=== PATIENT | male | born 1950 | race Caucasian/White ===

== ENCOUNTER 2020-08-29 18:06 | Emergency (ER) | payer MEDICARE, SELFPAY ==
--- NOTE | 2020-08-29 18:24 | ED.WOUNDLAC ---
HPI - Wound/Laceration General Chief Complaint: Wound/Laceration Stated Complaint: Cut left Hand Time Seen by Provider: 08/29/20 18:24 Source: patient and RN notes reviewed History of Present Illness HPI narrative: Patient is a 70-year-old male who presents the urgent care with complaints of a laceration to the left hand. Patient states that he was using a preparing box tender to strip the wire and the preparing box tender slipped, cutting his hand. Patient states that happened just within the last hour. States that he ran cold water over the injury, controlled the bleeding and cover the hand with a glove. Denies of any other acute complaints or injuries. No acute distress noted. Patient aware of the plan of care. Some parts of this dictation were generated by voice recognition software and may contain typographical and/or grammatical inaccuracies. Related Data Home Medications Medication Instructions Recorded Confirmed atorvastatin 80 mg PO DAILY 08/29/20 08/29/20 bupropion HCl 150 mg PO QAM 08/29/20 08/29/20 fluoxetine 40 mg PO DAILY 08/29/20 08/29/20 hydrocodone-acetaminophen 1 tablet PO Q6H PRN 08/29/20 08/29/20 lisinopril 20 mg PO DAILY 08/29/20 08/29/20 modafinil 200 mg PO QAM 08/29/20 08/29/20 sildenafil 100 mg PO DAILY PRN 08/29/20 08/29/20 Allergies Allergy/AdvReac Type Severity Reaction Status Date / Time No Known Allergies Allergy Verified 08/29/20 18:29 Review of Systems Review of Systems: Narrative: CONSTITUTIONAL: Denies fever, chills, or sweats. EYES: Denies visual changes, redness, or discharge. ENT: Denies rhinorrhea, congestion, sore throat, or otalgia. CARDIOVASCULAR: Denies chest pain, palpitations, or edema. RESPIRATORY: Denies cough or dyspnea. GASTROINTESTINAL: Denies abdominal pain, nausea, vomiting, or diarrhea. GENITOURINARY: Denies dysuria or hematuria. SKIN: Reports of a laceration to the left hand MUSCULOSKELETAL: Denies back pain, joint pain, or myalgia. NEUROLOGIC: Denies headache, numbness, or weakness. All other systems reviewed are negative, except as documented in HPI. PMFSH Comments At the time of my signature, I reviewed and agree with the nursing past medical, surgical, social, and family history. There is no relevant family history pertinent to the patient complaint. Exam Narrative: Exam Narrative: GENERAL: This is a well-nourished, well-developed patient, in no apparent distress. HEAD: normocephalic, atraumatic. EYES: PERRL. Sclera clear/white. Vision is grossly intact. EARS: External ears normal NOSE: External nose normal with no obvious nasal discharge, nares without redness, no rhinorrhea. THROAT: Mucous membranes moist NECK: Neck supple CARDIOVASCULAR: Regular rate and rhythm SKIN: 4.5 cm linear laceration to the thenar eminence of the left palmar NEURO: awake, alert, and oriented to person, place and time. There were no obvious focal neurologic abnormalities. EXTREMITIES: Positive strong left radial pulse with capillary refill less than 2 seconds. Range of motion to left upper extremity within normal limits Course Vital Signs Vital signs: Vital Signs Temperature 98.9 F 08/29/20 18:25 Pulse Rate 55 L 08/29/20 18:25 Respiratory Rate 16 08/29/20 18:25 Blood Pressure 156/68 H 08/29/20 18:25 Pulse Oximetry 100 08/29/20 18:25 Temperature 98.9 F 08/29/20 18:32 Pulse Rate 55 L 08/29/20 18:32 Respiratory Rate 16 08/29/20 18:32 Blood Pressure 156/68 H 08/29/20 18:32 Pulse Oximetry 100 08/29/20 18:32 Reviewed-patient is informed that they may have pre-hypertension or hypertension based on a blood pressure reading in the department. I recommend the patient call the primary care provider listed on their discharge instructions or a physician of their choice this week to arrange follow-up for further evaluation of possible pre-hypertension or hypertension. Procedures Laceration Laceration 1: Site: hand Side (If applicable): left Size (cm): 4.5
[2020-08-29 18:25] VITALS: BP 156/68; PULSE 55; RESP 16; TEMP 37.2; O2SAT 100
[2020-08-29 18:32] VITALS: BP 156/68; PULSE 55; RESP 16; TEMP 37.2; O2SAT 100
[2020-08-29] MEDS: TETANUS,DIPHTHERIA,AC PERTUSSIS ADULT (0.5 ML) BOOSTRIX IM (18:50)
== END 2020-08-29 19:17 | disposition home or self-care (01) ==
PROVIDERS: Emergency Provider Nurse Practitioner Family; PCP Internal Medicine
DX: S61.412A Laceration without foreign body of left hand, initial encounter (principal); Z23 Encounter for immunization; W27.0XXA Contact with workbench tool, initial encounter
CPT/HCPCS: 12002; 90471; 90715; 99212; G0463